=== PATIENT | male | born 1995 | race Two or more races ===

== ENCOUNTER 2020-09-23 06:52 | Outpatient (CLI) | payer OTHER | END 2020-09-23 07:34 | disposition home or self-care (01) | LOC: LAB 06:52 | PROVIDERS: ATTEND Internal Medicine Endocrinology, Diabetes & Metabolism | DX: Z20.828 Contact with and (suspected) exposure to other viral communicable diseases (principal) ==

== ENCOUNTER 2020-10-11 06:29 | Outpatient (CLI) | payer OTHER | END 2020-10-11 08:45 | disposition home or self-care (01) | LOC: LAB 06:29 | PROVIDERS: ATTEND Internal Medicine Endocrinology, Diabetes & Metabolism | DX: Z20.828 Contact with and (suspected) exposure to other viral communicable diseases (principal) ==

== ENCOUNTER 2021-09-15 07:59 | Outpatient (CLI) | payer OTHER | END 2021-09-15 14:30 | disposition home or self-care (01) | LOC: LAB 07:59 | PROVIDERS: ATTEND Internal Medicine Endocrinology, Diabetes & Metabolism | DX: Z20.828 Contact with and (suspected) exposure to other viral communicable diseases (principal); Z20.822 Contact with and (suspected) exposure to COVID-19; R05.9 Cough, unspecified ==